=== PATIENT | male | born 1985 | race Hispanic/Latino ===

== ENCOUNTER 2018-03-29 22:38 | Emergency (ER) | payer OTHER ==
[2018-03-29] MEDS ORDERED: IBUPROFEN 800 MG TAB ONE (23:29)
== END 2018-03-30 00:40 | disposition home or self-care (01) ==
LOC: EDH 22:38
DX: S20.212A Contusion of left front wall of thorax, initial encounter (principal); S83.91XA Sprain of unspecified site of right knee, initial encounter; J45.909 Unspecified asthma, uncomplicated; Z87.891 Personal history of nicotine dependence; W06.XXXA Fall from bed, initial encounter; Y93.89 Activity, other specified; Y92.89 Other specified places as the place of occurrence of the external cause; Y99.8 Other external cause status
CPT/HCPCS: 71046; 73560

== ENCOUNTER 2022-06-18 16:38 | Emergency (ER) | payer OTHER ==
[~2022-06-18] VITALS: Ht 175.3 cm; Wt 127.0 kg
[2022-06-18 16:41] VITALS: BP 162/84
[2022-06-18 17:37] LABS: BASOPHILS % (AUTO) 0.5 % (0.0-5.0); EOSINOPHILS % (AUTO) 4.5 % (0.0-8.0); HEMATOCRIT 48.6 % (42-54); LYMPHOCYTES % (AUTO) 23.7 % (21.0-51.0); MEAN CORPUSCULAR HEMOGLOBIN 31.7 pg (27.0-33.0); MEAN CORPUSCULAR HGB CONC 33.7 g/dL (32.0-36.0); MEAN CORPUSCULAR VOLUME 93.8 fL (79-99); MONOCYTES % (AUTO) 7.5 % (3.0-13.0); PLATELET COUNT (AUTO) 258 K/uL (130-400); RED BLOOD CELL COUNT(AUTO) 5.18 MIL/uL (4.50-6.20); RED CELL DISTRIBUTION WIDTH 13.3 % (11.0-15.5); WHITE BLOOD COUNT (AUTO) 9.6 K/uL (4.8-10.8)
[2022-06-18 17:48] LABS: CREATININE 0.7 mg/dL (0.5-1.5); POTASSIUM 4.3 mmol/L (3.5-5.1)
[2022-06-18 17:57] LABS: ALBUMIN 3.7 g/dL (3.5-5.0); TOTAL PROTEIN, SERUM 7.2 g/dL (6.0-8.3)
[2022-06-18 18:40] LABS: B-TYPE NATRIURETIC PEPTIDE 10 pg/mL (0-100)
[2022-06-18] MEDS ORDERED: ONDA4TAB10 PO (18:59)
[2022-06-18] MEDS ORDERED: BENZ-39 PO (18:59)
[2022-06-18] MEDS ORDERED: IBUP-2070 PO (18:59)
[2022-06-18] MEDS ORDERED: ALBUHFA IH (19:02)
== END 2022-06-18 19:18 | disposition home or self-care (01) ==
LOC: EDH 16:38
DX: B34.9 Viral infection, unspecified (principal); R03.0 Elevated blood-pressure reading, without diagnosis of hypertension; Z20.822 Contact with and (suspected) exposure to COVID-19
CPT/HCPCS: 99285; 71045; 87635; 84484; 80053; 83880; 85025; 87804 ×2; 36415; 93005; C9803